=== PATIENT | female | born 1985 | race American Indian/Alaskan Native ===

== ENCOUNTER 2021-05-28 19:27 | Emergency (ER) | payer MEDICAID ==
[2021-05-28 20:50] LABS: Bilirubin,Urine NEG (Negative); Blood,Urine MOD (Negative); Color,Urine Amber (Yellow); Mucus,Urine 3+ /HPF
[2021-05-28] MEDS ORDERED: KETOROLAC 30 MG/1 ML INJ IV ONE (21:00)
[2021-05-28] MEDS ORDERED: SODIUM CHLORIDE 0.9% 1000 ML 1,000 ML IV ONE (21:00)
--- NOTE | 2021-05-28 21:06 | Emergency Department Report ---
ED Abdominal Pain HPI - General Chief Complaint: Abdominal Pain Stated Complaint: ABD/BACK PAIN Time Seen by Provider: 05/28/21 21:01 Source: patient Mode of arrival: Ambulatory Limitations: No Limitations - History of Present Illness Initial Comments: 35 year old female presents to ED with complaints of lower abd pain and right low back pain. Patient states that she started with right lumbar pain lastnight and then today she started with lower abdominal pain. She denies any n/v. She states she hasn't had BM in 2 days and she also feels bloated. She is currently on MC. She states the back pain is worse with movement and sometimes when she breathes. She denies UTI symptoms or any abnl vag symptoms. She states she has had similar re-occurring symptoms for few months. She states she was told once she had ovarian cyst and is concerned that this is cause of pain. She last went to an [facility] in January for similar symptoms and at the time she had abd US and pelvic US but was normal at time. She has not f/u with OBGYN nor GI since having these symptoms. She states she moved her from [facility] last year and has not been able to establish with any doctors as yet. MD Complaint: abdominal pain, other (low back pain ) -: days(s) (1) - Related Data Previous Rx's Medication Instructions Recorded Last Taken Type Ketorolac [Toradol] 10 mg PO Q6H PRN #20 05/28/21 Unknown Rx Sulfamethoxazole/Trimethoprim 1 each PO BID #10 05/28/21 Unknown Rx [Bactrim DS TAB] Allergies Allergy/AdvReac Type Severity Reaction Status Date / Time iodine Allergy Unknown Verified 05/28/21 20:32 Penicillins Allergy Unknown Verified 05/28/21 20:31 shellfish derived Allergy Unknown Verified 05/28/21 20:31 ED Review of Systems ROS: Stated complaint: ABD/BACK PAIN Other details as noted in HPI Comment: All other systems reviewed and negative Constitutional: denies: chills, fever Eyes: denies: eye pain, eye discharge, vision change ENT: denies: ear pain, throat pain, dental pain, hearing loss, epistaxis, congestion Respiratory: denies: cough, shortness of breath, SOB with exertion, SOB at rest, wheezing Cardiovascular: denies: chest pain, palpitations Gastrointestinal: abdominal pain, constipation, other (abdominal bloating ). denies: nausea, vomiting, diarrhea, hematemesis, hematochezia Genitourinary: denies: urgency, dysuria, frequency, hematuria, discharge, abnormal menses, dyspareunia Musculoskeletal: back pain. denies: joint swelling, arthralgia, myalgia Skin: denies: rash, lesions, change in color, change in hair/nails, pruritus, other Neurological: denies: headache, weakness, numbness, paresthesias, confusion, abnormal gait, vertigo Psychiatric: denies: anxiety, depression, auditory hallucinations, visual hallucinations, homicidal thoughts, suicidal thoughts Hematological/Lymphatic: denies: easy bleeding, easy bruising, swollen glands ED Past Medical Hx - Medications Home Medications: Home Medications Medication Instructions Recorded Confirmed Last Taken Type Ketorolac [Toradol] 10 mg PO Q6H PRN #20 05/28/21 Unknown Rx Sulfamethoxazole/Trimethoprim 1 each PO BID #10 05/28/21 Unknown Rx [Bactrim DS TAB] ED Physical Exam - General Limitations: No Limitations General appearance: alert, in no apparent distress, obese - Head Head exam: Present: atraumatic, normocephalic, normal inspection - Neck Neck exam: Present: normal inspection, full ROM - Respiratory Respiratory exam: Present: normal lung sounds bilaterally. Absent: respiratory distress, wheezes, rales, rhonchi, stridor - Cardiovascular Cardiovascular Exam: Present: regular rate, normal rhythm, normal heart sounds - GI/Abdominal GI/Abdominal exam: Present: soft, tenderness (diffuse upper and LLQ and suprapubic ttp ). Absent: distended, guarding, rebound, rigid, normal bowel sounds - Back Exam Back exam: Present: normal inspection, full ROM, CVA tenderness (R) (mild ), paraspinal tenderness (right upper lumbar ) - Neurological Exam Neurological exam: Present: alert, oriented X3, CN II-XII intact, normal gait - Psychiatric Psychiatric exam: Present: normal affect, normal mood - Skin Skin exam: Present: intact ED Course Vital Signs 05/28/21 05/28/21 05/29/21 19:31 21:30 00:52 Temperature 98.1 F 98 F Pulse Rate 73 74 Respiratory 16 14 17 Rate Blood Pressure 124/86 Blood Pressure 156/95 [Right] O2 Sat by Pulse 98 100 Oximetry ED Medical Decision Making - Lab Data Result diagrams: 05/28/21 21:09 05/28/21 21:09 - Medical Decision Making All labs reviewed -- UA concerning for UTI, remaining labs unremarkable CT abdomen and pelvis shows nothing acute Patient currently resting comfortably. She is not in any acute distress. She is neuro intact and gait is normal. Discussed all results with patient. No acute findings on work up today. 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 Patient will be given medication for pain and antibiotic for UTI. Patient expressed understanding was stable at time of discharge. Critical care attestation.: If time is entered above; I have spent that time in minutes in the direct care of this critically ill patient, excluding procedure time. ED Disposition Clinical Impression: Lower abdominal pain, Lumbar pain, UTI (urinary tract infection) Disposition: HOME / SELF CARE / HOMELESS Is pt being admited?: No Does the pt Need Aspirin: No Condition: Stable Instructions: Acute Back Pain, Adult, Abdominal Pain, Adult, [id number], Urinary Tract Infection, Adult, Abdominal Pain (ED) Additional Instructions: Take the antibiotics as prescribed for UTI. Take the toradol as prescribed to help with pain. Follow up with PCP and OBGYN listed on discharge instructions. Return to ED if worse. Prescriptions: Sulfamethoxazole/Trimethoprim [Bactrim DS TAB] 1 each PO BID #10 Ketorolac [Toradol] 10 mg PO Q6H PRN #20 PRN Reason: Pain Referrals: [facility] [Provider Group] - 3-5 Days LASHONDA SANABRIA MD [Staff Physician] - 3-5 Days Forms: Work/School Release Form(ED) Time of Disposition: 22:56
[2021-05-28 21:42] LABS: Basophils # (Auto) 0.1 K/mm3 (0.0-0.1); Basophils % (Auto) 0.6 % (0.0-1.8); Eosinophils # (Auto) 0.2 K/mm3 (0.0-0.4); Eosinophils % (Auto) 1.7 % (0.0-4.3); Hematocrit 38.3 % (30.3-42.9); Hemoglobin 13.5 gm/dl (10.1-14.3); Lymphocytes % (Auto) 22.3 % (13.4-35.0); Mean Corpuscular HGB Conc 35 % (30-34); Mean Corpuscular Volume 78 fl (79-97); Monocytes # (Auto) 0.5 K/mm3 (0.0-0.8); Monocytes % (Auto) 5.5 % (0.0-7.3); Platelet Count 283 K/mm3 (140-440); Red Blood Count 4.91 M/mm3 (3.65-5.03); Red Cell Distribution Width 13.7 % (13.2-15.2)
[2021-05-28 21:52] LABS: Alanine Aminotransferase 16 units/L (7-56); Blood Urea Nitrogen 12 mg/dL (7-17); Calcium 8.9 mg/dL (8.4-10.2); Hemolysis Index 7
[2021-05-28 21:57] LABS: BUN/Creatinine Ratio 20
--- NOTE | 2021-05-28 23:06 | Cat Scan Report ---
CT ABDOMEN AND PELVIS WITHOUT CONTRAST INDICATION / CLINICAL INFORMATION: Increasing abd / back pain x 1 day.. TECHNIQUE: Axial CT images were obtained through the abdomen and pelvis without IV contrast. All CT scans at this location are performed using CT dose reduction for ALARA by means of automated exposure control. COMPARISON: None available. FINDINGS: LOWER CHEST: No significant abnormality of the imaged chest. LIVER: No significant abnormality. GALLBLADDER: No significant abnormality. BILE DUCTS: No significant abnormality. SPLEEN: No significant abnormality. PANCREAS: No significant abnormality. ADRENALS: No significant abnormality. RIGHT KIDNEY / URETER: No significant abnormality. LEFT KIDNEY / URETER: No significant abnormality. STOMACH / DUODENUM / SMALL BOWEL: No significant abnormality. COLON: No significant abnormality. APPENDIX: No significant abnormality. PERITONEUM: No free air or free fluid are present within the abdomen or pelvis. LYMPH NODES: No significant adenopathy. AORTA / ARTERIES: No significant abnormality. IVC / VEINS: No significant abnormality. URINARY BLADDER: No significant abnormality. REPRODUCTIVE ORGANS: No significant abnormality. ADDITIONAL ABDOMINAL/PELVIC FINDINGS: None. SKELETAL SYSTEM: No significant abnormality. IMPRESSION: 1. No acute findings demonstrated on the noncontrast enhanced CT of the abdomen and pelvis. Signer Name: Vince Soria II, MD Signed: 05/28/2021 11:02 PM Workstation Name: [id number]
[2021-05-29 00:54] VITALS: BP 156/95
== END 2021-05-29 00:52 | disposition home or self-care (01) ==
LOC: ED 19:27
DX: R10.30 Lower abdominal pain, unspecified (principal); M54.50 Low back pain, unspecified; N39.0 Urinary tract infection, site not specified; Z91.041 Radiographic dye allergy status; Z88.0 Allergy status to penicillin; Z91.013 Allergy to seafood
CPT/HCPCS: 36415; 74176; 80053; 81001; 83690; 84703; 85025; 87086; 96361; 96374; 99284; J1885; J7030; Q0162